=== PATIENT | male | born 1965 | race Caucasian/White ===

== ENCOUNTER → 2024-06-11 14:47 | Outpatient (REF) | payer OTHER, SELFPAY | LOC: RAD 14:47 | PROVIDERS: ATTENDING PHYSICIAN Internal Medicine | DX: R05.3 Chronic cough (principal) | CPT/HCPCS: 71046 ==

== ENCOUNTER → 2024-07-16 15:00 | Outpatient (REF) | payer OTHER, SELFPAY ==
[2024-07-16 16:22] LABS: % Basophils 0.5 % (0-2); % Eosinophils 2.5 % (0-6); % Immature Granulocytes 0.4 % (0-0.5); % Monocytes 7.2 % (1.7-9.3); % Neutrophils 67.4 % (42.2-75.2); Absolute Eosinophils 0.1 10^3/uL (0-0.7); Absolute Lymphocytes 1.2 10^3/uL (1.2-3.4); Absolute Monocytes 0.4 10^3/uL (0.1-0.6); Absolute Neutrophils 3.7 10^3/uL (1.4-6.5); Hematocrit 45.6 % (39.0-52.0); Hemoglobin 14.6 g/dL (13.0-18.0); Mean Corpuscular Volume 90.5 fL (80.0-94.0); Mean Platelet Volume 10.7 fL (7.4-10.4); Nucleated Red Blood Cells % 0 % (-); Platelet Count 141 10^3/uL (130-400); Red Blood Cell Count 5.04 10^6/uL (4.70-6.10); Red Cell Dist. Width 14.3 % (11.5-14.5); White Blood Cell Count 5.5 10^3/uL (4.8-10.8)
[2024-07-16 16:54] LABS: ALT (SGPT) 21 U/L (0-50); AST (SGOT) 29 U/L (17-59); Albumin 4.3 g/dl (3.5-5.0); Alkaline Phosphatase 96 U/L (38-126); Blood Urea Nitrogen 14 mg/dl (9-20); Calcium 9.3 mg/dl (8.4-10.2); Carbon Dioxide 34 mmol/L (22-30); Chloride 98 mmol/L (98-107); Glucose 82 mg/dl (70-99); HDL Cholesterol 51 mg/dl; LDL Cholesterol, Calculated 115 mg/dl; Potassium 4.9 mmol/L (3.5-5.1); Sodium 139 mmol/L (135-145); Total Bilirubin 0.4 mg/dl (0.2-1.3); Total Cholesterol 192 mg/dl (50-199); Total Protein 6.7 g/dl (6.3-8.2); Triglyceride 134 mg/dl (10-149); Very Low Density Lipoprotein 26 mg/dl (0-30); eGFR > 60.00
[2024-07-16 17:26] LABS: PSA, Total - Screen 0.13 ng/ml (0.0-4.0); TSH Reflex To Free T4 2.18 uIU/ml (0.47-4.68)
== END ==
LOC: REG 15:00
PROVIDERS: ATTENDING PHYSICIAN Student in an Organized Health Care Education/Training Program
DX: R06.02 Shortness of breath (principal); R00.2 Palpitations; F41.8 Other specified anxiety disorders; G47.33 Obstructive sleep apnea (adult) (pediatric); Z68.42 Body mass index [BMI] 45.0-49.9, adult; Z12.5 Encounter for screening for malignant neoplasm of prostate
CPT/HCPCS: 36415; 80053; 80061; 84443; 85025; G0103

== ENCOUNTER → 2024-08-10 12:23 | Outpatient (REF) | payer OTHER, SELFPAY | LOC: DHSLP 12:23 | PROVIDERS: ATTENDING PHYSICIAN Student in an Organized Health Care Education/Training Program | DX: G47.33 Obstructive sleep apnea (adult) (pediatric) (principal); R09.02 Hypoxemia | CPT/HCPCS: 95800 ==

== ENCOUNTER 2024-10-14 16:20 | Inpatient (IN) | payer OTHER, SELFPAY ==
[2024-10-14] VITALS (9 sets, daily range): BP systolic 102–159; BP diastolic 81–101; PULSE 2–80; BMI 50.8; BMI 50.0
[2024-10-14 12:45] LABS: % Basophils 0.5 % (0-2); % Eosinophils 1.5 % (0-6); % Immature Granulocytes 0.2 % (0-0.5); % Lymphocytes 13.5 % (20.5-51.1); % Monocytes 6.1 % (1.7-9.3); % Neutrophils 78.2 % (42.2-75.2); Absolute Basophils 0.1 10^3/uL (0-0.2); Absolute Eosinophils 0.1 10^3/uL (0-0.7); Absolute Lymphocytes 1.2 10^3/uL (1.2-3.4); Absolute Monocytes 0.6 10^3/uL (0.1-0.6); Absolute Neutrophils 7.2 10^3/uL (1.4-6.5); Hematocrit 45.8 % (39.0-52.0); Hemoglobin 15.2 g/dL (13.0-18.0); Mean Corp Hgb Conc. 33.2 g/dL (33.0-37.0); Mean Corpuscular Hgb 30.3 pg (27.0-31.0); Mean Corpuscular Volume 91.2 fL (80.0-94.0); Mean Platelet Volume 10.5 fL (7.4-10.4); Nucleated Red Blood Cells % 0 % (-); Platelet Count 141 10^3/uL (130-400); Red Blood Cell Count 5.02 10^6/uL (4.70-6.10); Red Cell Dist. Width 14.3 % (11.5-14.5); White Blood Cell Count 9.2 10^3/uL (4.8-10.8)
[2024-10-14 12:58] LABS: ALT (SGPT) 29 U/L (0-50); AST (SGOT) 33 U/L (17-59); Albumin 4.6 g/dl (3.5-5.0); Alkaline Phosphatase 97 U/L (38-126); Blood Urea Nitrogen 20 mg/dl (9-20); Calcium 8.9 mg/dl (8.4-10.2); Carbon Dioxide 28 mmol/L (22-30); Chloride 103 mmol/L (98-107); Glucose 120 mg/dl (70-99); Potassium 5.1 mmol/L (3.5-5.1); Sodium 139 mmol/L (135-145); Total Bilirubin 0.5 mg/dl (0.2-1.3); Total Protein 7.3 g/dl (6.3-8.2); eGFR > 60.00
[2024-10-14 13:12] LABS: Troponin I 0.083 ng/ml
--- NOTE | 2024-10-14 14:53 | ED.GENMED ---
History of Present Illness
<Jesús Reza PA-C - Last Filed: 10/14/24 15:35>
General
Chief Complaint: Generalized Pain
Source: patient
Time Seen by Provider: 10/14/24 14:31
History of Present Illness
History of Present Illness:
59-year-old male with past medical history of pulmonary embolism from unknown origin presents to the emergency department for evaluation after he was at home today doing some routine house chores when he developed pain that radiated from his
bilateral legs up through his abdomen and chest and into both arms accompanied with shortness of breath and feeling clammy lasting about 15 minutes and resolved after sitting down. Patient states that anytime he would go to get up to start
ambulating again the symptoms would recur. Patient notes that he is chest pain-free now but still will intermittently start to feel clammy with the symptoms resolving after a few minutes. He denies any history of similar. He does note that about
2 years ago he had a cardiac catheterization done as part of a pulmonary embolism workup and was told that this was unremarkable and has not seen cardiology since. Social history was noted for drinking about 8 ounces of vodka daily. He reports his
grandfather had a cardiac history but is unsure if he had any cardiac stents. Patient does not take any anticoagulant or antiplatelet medication presently. He is currently denying any fevers or recent illnesses, cough, hemoptysis, lower extremity
edema.
Past History
<Jesús Reza PA-C - Last Filed: 10/14/24 15:35>
Past History
ED Past Medical History: Other (Pulmonary embolism)
ED Past Surgical History: Orthopedic
Social History
Tobacco: Non-smoker
Alcohol: Daily
Drug: None
Personal:
Living: with family
Review of Systems
<Jesús Reza PA-C - Last Filed: 10/14/24 15:35>
Review of Systems
All Other Systems: ROS reviewed and negative except as documented in HPI and ROS
Phy Exam
<Jesús Reza PA-C - Last Filed: 10/14/24 15:35>
Physical Exam
Physical Exam:
GENERAL: Alert , in no apparent distress, overweight, appears older than stated age
EYE: clear conjunctiva b/l
HEAD: NCAT
ENT: o/p clr, mmm.
CARDIAC: Regular rate and rhythm .
LUNGS: Clear breath sounds bilaterally, no acute respiratory distress, no wheezes/rales/rhonchi
ABDOMEN: Soft, without focal tenderness, no r/g, no cvat
NEUROLOGICAL: Alert and oriented
SKIN: Warm and dry, skin intact.
MUSCULOSKELETAL: No edema, well perfused. Easily palpable pulses to bilateral lower extremities
PSYCH: Normal and appropriate interaction.
Scores
<Jesús Reza PA-C - Last Filed: 10/14/24 15:35>
Heart Failure Risk
Heart Failure Risk Score: Not Applicable
Heart Score for Chest Pain Patients
STEMI patient?: Not applicable
Withdrawal Assessment of Alcohol
Withdrawal Assessment Completed?: Not applicable
Course
<Jesús Reza PA-C - Last Filed: 10/14/24 15:35>
Orders/Labs/Results
Orders:
Orders
10/14/24 Breakfast
Regular
At Your Request: Full Participation
10/14/24 12:13
EKG [Electrocardiogram (*1)] Urgent
Reason for Study: Chest Pain
EKG- Treatment ONCE
10/14/24 12:37
Complete Blood Count/With Diff Urgent
10/14/24 12:38
Comprehensive Metabolic Panel Urgent
Troponin I Urgent
10/14/24 14:41
Electrocardiogram (*1) Urgent
Reason for Study: Chest Pain
EKG- Treatment ONCE
10/14/24 14:43
NT-proBNP Urgent
Comment: 'ADD ON
Troponin I Urgent
10/14/24 14:48
CT Chest/abd/pelvis Angio W/wo Urgent
Comment:
Reason For Exam: elevated trop, chest pain, numbness to extremity
10/14/24 15:19
Add On- LAB Urgent
Tests Added?: bnp
10/14/24 15:20
Heparin 10,000 units IV NOW STA
Nursing to Place Non Medication Order As Directed
Physician Order: PTT 6 hours after initial start of Heparin infusion
Above order entered?: Yes
10/14/24 15:28
Heparin 10,000 units IV PRN PRN
10/14/24 15:29
Heparin 5,000 units IV PRN PRN
10/14/24 15:30
Heparin 10726 Units/250 ml 25,000 units in 250 ml IV PER PROTOCOL
Weight to be used for heparin protocol in kilograms (kg):: 165.1
Protocol:: DVT/PE
PTT Goal Range to be used:: PTT 73 to 111 seconds
Order type:: Initial
INITIAL Infusion Dose (UNITS/KG/hr) & then follow protocol:: 18 units/kg/hr
Infusion Dose in UNITS/hr & then follow protocol (UNITS/hr):: 2,000
INFUSION RATE in mL/hr & then follow protocol (mL/hr):: 20
For DVT/PE algorithm, re-bolus for low PTT?: Yes
PTT less than or equal to 64 seconds:: Re-bolus 80 units/kg (max 10,000units). Increase by 500 units/hr
(+ 5mL/hr)
PTT 64.1 to 72.9 seconds:: Re-bolus 40 units/kg (max 5,000 units). Increase by 300 units/hr
(+ 3mL/hr)
PTT 73 to 111 seconds:: Target Range. No change in rate.
PTT 111.1 to 130.9 seconds:: Decrease rate by 300 units/hr (- 3 mL/hr)
PTT 131 to 199.9 seconds:: HOLD for 1 hr. Then decrease by 400 units/hr (- 4mL/hr)
PTT greater than or equal to 200 seconds:: HOLD for 2 hrs & Notify Provider. Then decrease by 500 units/hr
(- 5mL/hr)
Lab follow-up:: Each change, PTT q6h until 2 consecutive are therapeutic. Then
PTT daily.
10/14/24 15:33
Echo 2D MMode Color/Doppler Urgent
Reason for Study: pe
10/14/24 15:34
Consult Pulmonary [PULMONARY CONSULT] Urgent
Consulting Provider: Thad Norris
Was physician already notified: Yes
10/14/24 15:35
D-Dimer Urgent
Comment: ADD ON
PTT Urgent
Comment: Obtain baseline before beginning heparin infusion if not already collected
10/14/24 16:03
Admit/Transfer Patient As Directed
Co-Sign Provider:
Level of Care: Inpatient admission
Assign to:: Telemetry
Physician / Group: xena
Diagnosis: PE
Reason for Telemetry: Other
Other Reason for Telemetry: PE
Date to Stop Telemetry: 10/16/24
Time to Stop Telemetry: 11:00
Reason for Hospitalization: PE
Expected length of stay greater than two midnights?: Yes
ELOS- Estimated Length of Stay in days: 3
I certify the patient meets the requirements for IP care: Yes
PRN Pain Medication Management As Directed
May give lesser potent ordered pain med per pt: Yes
preference::
Protocol:: Medication orders for pain may be administered in a
manner that supports deferring to patient preference
when the pt is:
- Requesting an ordered lesser potent pain medication.
Least to most potent pain medications are defined
as: acetaminophen < NSAID < tramadol < opioids
(morphine, oxycodone, hydromorphone).
- Requesting a lesser dose of the same medication IF
ORDERED.
- Requesting a less intrusive route of administration
if both routes are prescribed by the provider (PO <
IV).
10/14/24 16:04
Code Status As Directed
Resuscitation Status: Full Code
10/14/24 17:57
Acetaminophen [Tylenol] 650 mg PO Q4HPRN PRN
10/14/24 17:57
Heparin Protocol- PTT Orders As Directed
PTT per Heparin protocol: -Obtain CBC and baseline PTT - if not already collected.
-Obtain PTT 6 hours from start of infusion. Then, every 6 hours until 2 consecutive
PTT's are therapeutic. Then, PTT Daily.
-With each rate change, obtain PTT every 6 hours until 2 consecutive PTT's are
therapeutic. Then, PTT Daily.
Activity As Directed
Activity Level: As Tolerated
Bladder Scan As Directed
Follow Bladder Retention/Intermittent Cath Algorithm?: Yes
Frequency: Per Retention Algorithm
Comment: as per intermittent urinary catheter algorithm
Bladder Scan As Directed
Follow Bladder Retention/Intermittent Cath Algorithm?: Yes
PRN if no void in __ hours: 6
Frequency: Per Retention Algorithm
If Bladder Scan Result >: 400
then:: Straight cath
Intake/ Output As Directed
Frequency: Per unit guidelines
Notify MD As Directed
Notify physician if: PTT is greater than or equal to 200.
Straight Cath As Directed
Frequency: Per Retention Algorithm
Additional Instructions: as per intermittent urinary catheter algorithm
Straight Cath As Directed
Frequency: Per Retention Algorithm
Additional Instructions: straight cath as needed per acute urinary retention algorithm for 24 hrs
Additional Instructions: for bladder scan greater than 400 mL
Vital Signs As Directed
Frequency: Per unit guidelines
Cpap [RESP] Routine
Patient to use own unit?: No
Set Pressure (cm H2O): 10
10/14/24 18:03
Oxycodone [Roxicodone] 30 mg PO Q3HPRN PRN
10/14/24 20:00
Gabapentin [Neurontin] 300 mg PO BID
10/14/24 21:39
PTT Urgent
10/14/24 22:00
Diphenhydramine [Benadryl] 50 mg PO HS
Duloxetine Delayed Release [Cymbalta Delayed Release] 30 mg PO HS
10/16/24 06:00
Complete Blood Count/No Diff Q2D
Comment: notify provider: Platelet count < 130,000 or decrease by 50% from baseline
10/16/24 11:00
DC Protocol for Telemetry ONCE
10/18/24 06:00
Complete Blood Count/No Diff Q2D
Comment: notify provider: Platelet count < 130,000 or decrease by 50% from baseline
10/20/24 06:00
Complete Blood Count/No Diff Q2D
Comment: notify provider: Platelet count < 130,000 or decrease by 50% from baseline
10/22/24 06:00
Complete Blood Count/No Diff Q2D
Comment: notify provider: Platelet count < 130,000 or decrease by 50% from baseline
10/24/24 06:00
Complete Blood Count/No Diff Q2D
Comment: notify provider: Platelet count < 130,000 or decrease by 50% from baseline
10/26/24 06:00
Complete Blood Count/No Diff Q2D
Comment: notify provider: Platelet count < 130,000 or decrease by 50% from baseline
10/28/24 06:00
Complete Blood Count/No Diff Q2D
Comment: notify provider: Platelet count < 130,000 or decrease by 50% from baseline
10/30/24 06:00
Complete Blood Count/No Diff Q2D
Comment: notify provider: Platelet count < 130,000 or decrease by 50% from baseline
Abnormal Lab Results
10/14/24 10/14/24 10/14/24
12:37 12:38 14:43
MPV 10.5 H fL
(7.4-10.4)
Absolute Neuts (auto) 7.2 H 10^3/uL
(1.4-6.5)
Neutrophils % 78.2 H %
(42.2-75.2)
Lymphocytes % 13.5 L %
(20.5-51.1)
D-Dimer
Glucose 120 H mg/dl
(70-99)
Troponin I 0.083 H* ng/ml 0.122 H* D ng/ml
10/14/24
15:35
MPV
Absolute Neuts (auto)
Neutrophils %
Lymphocytes %
D-Dimer 4.05 H ug/mlFEU
(0.00-0.50)
Glucose
Troponin I
10/14/24 12:37
10/14/24 12:38
Vital Signs
Initial and Last Documented VS:
Initial Vital Signs
Temp Pulse Resp BP Pulse Ox
98 F 111 16 139/101 95
10/14/24 12:25 10/14/24 12:25 10/14/24 12:25 10/14/24 12:25 10/14/24 12:25
Last Documented Vital Signs
Temp Pulse Resp BP Pulse Ox
97.8 F 95 18 159/98 96
10/14/24 19:19 10/14/24 19:19 10/14/24 19:19 10/14/24 19:19 10/14/24 19:19
<Bull Steen, DO - Last Filed: 10/14/24 20:02>
Orders/Labs/Results
Orders:
Orders
10/14/24 Breakfast
Regular
At Your Request: Full Participation
10/14/24 12:13
EKG [Electrocardiogram (*1)] Urgent
Reason for Study: Chest Pain
EKG- Treatment ONCE
10/14/24 12:37
Complete Blood Count/With Diff Urgent
10/14/24 12:38
Comprehensive Metabolic Panel Urgent
Troponin I Urgent
10/14/24 14:41
Electrocardiogram (*1) Urgent
Reason for Study: Chest Pain
EKG- Treatment ONCE
10/14/24 14:43
NT-proBNP Urgent
Comment: 'ADD ON
Troponin I Urgent
10/14/24 14:48
CT Chest/abd/pelvis Angio W/wo Urgent
Comment:
Reason For Exam: elevated trop, chest pain, numbness to extremity
10/14/24 15:19
Add On- LAB Urgent
Tests Added?: bnp
10/14/24 15:20
Heparin 10,000 units IV NOW STA
Nursing to Place Non Medication Order As Directed
Physician Order: PTT 6 hours after initial start of Heparin infusion
Above order entered?: Yes
10/14/24 15:28
Heparin 10,000 units IV PRN PRN
10/14/24 15:29
Heparin 5,000 units IV PRN PRN
10/14/24 15:30
Heparin 12881 Units/250 ml 25,000 units in 250 ml IV PER PROTOCOL
Weight to be used for heparin protocol in kilograms (kg):: 165.1
Protocol:: DVT/PE
PTT Goal Range to be used:: PTT 73 to 111 seconds
Order type:: Initial
INITIAL Infusion Dose (UNITS/KG/hr) & then follow protocol:: 18 units/kg/hr
Infusion Dose in UNITS/hr & then follow protocol (UNITS/hr):: 2,000
INFUSION RATE in mL/hr & then follow protocol (mL/hr):: 20
For DVT/PE algorithm, re-bolus for low PTT?: Yes
PTT less than or equal to 64 seconds:: Re-bolus 80 units/kg (max 10,000units). Increase by 500 units/hr
(+ 5mL/hr)
PTT 64.1 to 72.9 seconds:: Re-bolus 40 units/kg (max 5,000 units). Increase by 300 units/hr
(+ 3mL/hr)
PTT 73 to 111 seconds:: Target Range. No change in rate.
PTT 111.1 to 130.9 seconds:: Decrease rate by 300 units/hr (- 3 mL/hr)
PTT 131 to 199.9 seconds:: HOLD for 1 hr. Then decrease by 400 units/hr (- 4mL/hr)
PTT greater than or equal to 200 seconds:: HOLD for 2 hrs & Notify Provider. Then decrease by 500 units/hr
(- 5mL/hr)
Lab follow-up:: Each change, PTT q6h until 2 consecutive are therapeutic. Then
PTT daily.
10/14/24 15:33
Echo 2D MMode Color/Doppler Urgent
Reason for Study: pe
10/14/24 15:34
Consult Pulmonary [PULMONARY CONSULT] Urgent
Consulting Provider: Thad Norris
Was physician already notified: Yes
10/14/24 15:35
D-Dimer Urgent
Comment: ADD ON
PTT Urgent
Comment: Obtain baseline before beginning heparin infusion if not already collected
10/14/24 16:03
Admit/Transfer Patient As Directed
Co-Sign Provider:
Level of Care: Inpatient admission
Assign to:: Telemetry
Physician / Group: xena
Diagnosis: PE
Reason for Telemetry: Other
Other Reason for Telemetry: PE
Date to Stop Telemetry: 10/16/24
Time to Stop Telemetry: 11:00
Reason for Hospitalization: PE
Expected length of stay greater than two midnights?: Yes
ELOS- Estimated Length of Stay in days: 3
I certify the patient meets the requirements for IP care: Yes
PRN Pain Medication Management As Directed
May give lesser potent ordered pain med per pt: Yes
preference::
Protocol:: Medication orders for pain may be administered in a
manner that supports deferring to patient preference
when the pt is:
- Requesting an ordered lesser potent pain medication.
Least to most potent pain medications are defined
as: acetaminophen < NSAID < tramadol < opioids
(morphine, oxycodone, hydromorphone).
- Requesting a lesser dose of the same medication IF
ORDERED.
- Requesting a less intrusive route of administration
if both routes are prescribed by the provider (PO <
IV).
10/14/24 16:04
Code Status As Directed
Resuscitation Status: Full Code
10/14/24 17:57
Acetaminophen [Tylenol] 650 mg PO Q4HPRN PRN
10/14/24 17:57
Heparin Protocol- PTT Orders As Directed
PTT per Heparin protocol: -Obtain CBC and baseline PTT - if not already collected.
-Obtain PTT 6 hours from start of infusion. Then, every 6 hours until 2 consecutive
PTT's are therapeutic. Then, PTT Daily.
-With each rate change, obtain PTT every 6 hours until 2 consecutive PTT's are
therapeutic. Then, PTT Daily.
Activity As Directed
Activity Level: As Tolerated
Bladder Scan As Directed
Follow Bladder Retention/Intermittent Cath Algorithm?: Yes
Frequency: Per Retention Algorithm
Comment: as per intermittent urinary catheter algorithm
Bladder Scan As Directed
Follow Bladder Retention/Intermittent Cath Algorithm?: Yes
PRN if no void in __ hours: 6
Frequency: Per Retention Algorithm
If Bladder Scan Result >: 400
then:: Straight cath
Intake/ Output As Directed
Frequency: Per unit guidelines
Notify MD As Directed
Notify physician if: PTT is greater than or equal to 200.
Straight Cath As Directed
Frequency: Per Retention Algorithm
Additional Instructions: as per intermittent urinary catheter algorithm
Straight Cath As Directed
Frequency: Per Retention Algorithm
Additional Instructions: straight cath as needed per acute urinary retention algorithm for 24 hrs
Additional Instructions: for bladder scan greater than 400 mL
Vital Signs As Directed
Frequency: Per unit guidelines
Cpap [RESP] Routine
Patient to use own unit?: No
Set Pressure (cm H2O): 10
10/14/24 18:03
Oxycodone [Roxicodone] 30 mg PO Q3HPRN PRN
10/14/24 20:00
Gabapentin [Neurontin] 300 mg PO BID
10/14/24 21:39
PTT Urgent
10/14/24 22:00
Diphenhydramine [Benadryl] 50 mg PO HS
Duloxetine Delayed Release [Cymbalta Delayed Release] 30 mg PO HS
10/16/24 06:00
Complete Blood Count/No Diff Q2D
Comment: notify provider: Platelet count < 130,000 or decrease by 50% from baseline
10/16/24 11:00
DC Protocol for Telemetry ONCE
10/18/24 06:00
Complete Blood Count/No Diff Q2D
Comment: notify provider: Platelet count < 130,000 or decrease by 50% from baseline
10/20/24 06:00
Complete Blood Count/No Diff Q2D
Comment: notify provider: Platelet count < 130,000 or decrease by 50% from baseline
10/22/24 06:00
Complete Blood Count/No Diff Q2D
Comment: notify provider: Platelet count < 130,000 or decrease by 50% from baseline
10/24/24 06:00
Complete Blood Count/No Diff Q2D
Comment: notify provider: Platelet count < 130,000 or decrease by 50% from baseline
10/26/24 06:00
Complete Blood Count/No Diff Q2D
Comment: notify provider: Platelet count < 130,000 or decrease by 50% from baseline
10/28/24 06:00
Complete Blood Count/No Diff Q2D
Comment: notify provider: Platelet count < 130,000 or decrease by 50% from baseline
10/30/24 06:00
Complete Blood Count/No Diff Q2D
Comment: notify provider: Platelet count < 130,000 or decrease by 50% from baseline
Abnormal Lab Results
10/14/24 10/14/24 10/14/24
12:37 12:38 14:43
MPV 10.5 H fL
(7.4-10.4)
Absolute Neuts (auto) 7.2 H 10^3/uL
(1.4-6.5)
Neutrophils % 78.2 H %
(42.2-75.2)
Lymphocytes % 13.5 L %
(20.5-51.1)
D-Dimer
Glucose 120 H mg/dl
(70-99)
Troponin I 0.083 H* ng/ml 0.122 H* D ng/ml
10/14/24
15:35
MPV
Absolute Neuts (auto)
Neutrophils %
Lymphocytes %
D-Dimer 4.05 H ug/mlFEU
(0.00-0.50)
Glucose
Troponin I
10/14/24 12:37
10/14/24 12:38
Vital Signs
Initial and Last Documented VS:
Initial Vital Signs
Temp Pulse Resp BP Pulse Ox
98 F 111 16 139/101 95
10/14/24 12:25 10/14/24 12:25 10/14/24 12:25 10/14/24 12:25 10/14/24 12:25
Last Documented Vital Signs
Temp Pulse Resp BP Pulse Ox
97.8 F 95 18 159/98 96
10/14/24 19:19 10/14/24 19:19 10/14/24 19:19 10/14/24 19:19 10/14/24 19:19
<Jesús Reza PA-C - Last Filed: 10/14/24 15:35>
MDM/Problems Addressed
Differential Diagnosis Includes:
Angina, dissection, pulmonary embolism, muscular etiology
MDM/Problems Addressed:
59-year-old male presenting to the emergency department for evaluation after developing chest pain, abdominal pain bilateral upper and lower extremity pain that lasted about 15 minutes with exertion and accompanied with clamminess and shortness of
breath. Presently asymptomatic but while in the waiting room was reportedly diaphoretic. Labs were initiated on arrival and patient did have a slightly elevated troponin at 0.083. Will send patient for a stat dissection study given the pain into
the extremities. P troponin the EKG done which does show some T wave inversion in the anterior leads but is unchanged from initial EKG upon arrival. Anticipate admission. Holding aspirin until CTA completed to ensure no dissection prior to giving
medication. Will discuss with on-call cardiology for consultation.
<Jesús Reza PA-C - Last Filed: 10/14/24 15:35>
*Pulse Oximetry
Patient hypoxic: no
*EKG
Interpreted by ED Provider?: Yes
Heart Rate: 117
Rate: tachycardiac
Rhythm: sinus
[place]: normal axis
Ischemia: T-wave inversion (anterior leads)
*Work Car Operator Interpretation
Rate: normal
Rhythm: sinus
*Critical Care Note
Total Time (30-74mins, 75-104mins- exclusive of procedures): 35
comment:
Critical care statement: A total of 35 minutes of critical care time was provided for this patient. This includes management of unstable vital signs, evaluation of the patient at bedside, reviewing the patient's pertinent medical records, discussion
with consultants, review of old EKGs and review of pertinent medical records. This time with separate from time utilized to perform the aforementioned documented procedures
Data Reviewed
Review of Other/Old Records Reveals: Records and Testing
<Bull Steen DO - Last Filed: 10/14/24 20:02>
*Radiology
Radiology exam reviewed: radiology read reviewed
<Jesús Reza PA-C - Last Filed: 10/14/24 15:35>
Patient Management
Discussion with other providers: Hospitalist, System Integration Engineer and Radiologist
Escalation/DeEscalation of care consider admission/obs:
3:20 PM -received notification from radiology that patient has bilateral pulmonary embolism going into the left main pulmonary artery with mild right heart strain. PERT alert called. Heparin ordered
3:28 PM -pulmonary reviewed patient's CTA and feels patient is stable for heparin only at this time and does not require thrombolysis. Would like to obtain echocardiogram today and will come to the ER to see the patient. Hospitalist team was
notified and accepts for continued evaluation and treatment
ED Attending Note
<Jesús Reza PA-C - Last Filed: 10/14/24 15:35>
-
Portions of this chart may have been created with voice recognition software.� Occasional wrong word or��sound alike� substitutions may have occurred due to the inherent limitations of voice recognition software.
<Bull Steen DO - Last Filed: 10/14/24 20:02>
ED Attending Note
Patient seen and examined by attending physician: Yes
ED Attending Note:
Seen with PA examined briefly agree with assessment and plan plan of care from pulmonary reviewed, does not appear to be a lytic candidate at this time, will get an echo he is on unfractionated heparin is oxygenating okay
Discharge Plan
Departure
Patient Disposition: Admit
Date of Disposition: 10/14/24
Time of Disposition: 15:27
Presentation/result/management discussed w/ accepting MD/DO: Hospitalist
Discharge Problem:
Pulmonary embolism
Interventions
Interventions:
*Risk Screen - Suicide Last Done: 10/14/24 12:32
*General Assessment Last Done: 10/14/24 15:16
*Neglect/Abuse Screening Last Done: 10/14/24 12:32
ED- Fall Risk Assessment Last Done: 10/14/24 17:42
*ED COVID-19 Vaccine History Last Done: 10/14/24 15:16
*Nursing Disposition Last Done: 10/14/24 17:42
Discharge Date and Time
Discharge Date/Time: 10/14/24 17:42
[2024-10-14 15:16] LABS: Troponin I 0.122 ng/ml
[2024-10-14] MEDS: HEPARIN 10000 UNITS IV (15:35)
[2024-10-14] MEDS: HEPARIN 25000 UNITS/250 ML IV (15:39)
--- NOTE | 2024-10-14 15:49 | HPS.HSE ---
Family Physician
-
Family Physician: Sugey Stoddard MD
Chief Complaint
-
Short of
History of Present Illness
59-year-old male with past medical history of pulmonary embolism from unknown origin, was on Xarelto for 6 months, presents to the emergency department for evaluation after he was at home today doing some routine house chores when he developed pain
that radiated from his bilateral legs up through his abdomen and chest and into both arms accompanied with shortness of breath and feeling clammy lasting about 15 minutes and resolved after sitting down. Patient states that anytime he would go to
get up to start ambulating again the symptoms would recur. Patient denied any headache, dizzy, syncope. Patient denied any fever, chills, runny nose, congestion, cough. Patient denied abdominal pain, nausea, vomiting, diarrhea. Patient denied
dysuria hematuria patient denies any. Recent travel.
CT with PE. Patient is initiated on heparin drip. Admitting for further management
Medical History
Past Medical History
Past Medical History: Reports Other
Additional Past Medical History:
Pulmonary embolism
Pneumonia
DVT
Meniscal deterioration
Sleep apnea
Past Surgical History: Reports Other
Additional Past Surgical History:
Knee surgery
Dental implants
Social History
Tobacco: Non-smoker
Alcohol: Daily (6 to 8 ounce vodka)
Drug: Other (Occasional POTS)
Personal:
Living: With Family
Family History
Family History: Not pertinent
Allergies / Home Medications
Allergies reflects when Allergies were last updated in [facility].
Home Medications with original date entered in [facility]
Allergy/Medication List:
Allergies
Allergy/AdvReac Type Severity Reaction Status Date / Time
No Known Allergies Allergy Verified 12/14/21 10:11
Home Medications
Monolaurin 1,200 mg PO BID 11/30/21
lysine 1,000 mg tablet 1,000 mg PO BID 11/30/21
oxycodone 30 mg tablet 30 mg PO Q3HPRN PRN severe pain 11/30/21
celecoxib 200 mg capsule (Celebrex) 200 mg PO BID 10/14/24
diphenhydramine HCl 50 mg capsule 50 mg PO HS 10/14/24
duloxetine 30 mg capsule,delayed release 30 mg PO HS 10/14/24
gabapentin 300 mg capsule 300 mg PO BID 10/14/24
loperamide 2 mg tablet 2 mg PO DAILYPRN PRN dirrahea 10/14/24
magnesium oxide 500 mg PO DAILY 10/14/24
tirzepatide (weight loss) 5 mg/0.5 mL subcutaneous solution (Zepbound) 5 mg SC FR 10/14/24
Review of Systems
-
Constitutional: Reports No Symptoms
EENT: Reports No Symptoms
Respiratory: Reports Trouble Breathing
Cardiac: Reports Chest Pain
Abdomen/GI: Reports No Symptoms
: Reports No Symptoms
Musculoskeletal: Reports No Symptoms
Skin: Reports No Symptoms
Neurological: Reports No Symptoms
Endocrine: Reports No Symptoms
Hematologic/Lymphatic: Reports No Symptoms
Psych: Reports No Symptoms
Physical Exam
Vital Signs
Vital Signs
Temp Pulse Resp BP Pulse Ox
98 F 99 17 145/92 96
10/14/24 12:25 10/14/24 15:45 10/14/24 15:45 10/14/24 15:12 10/14/24 15:45
Physical Exam
General: Well Developed, Well Nourished and No Apparent Distress
HEENT: NormoCephalic, Moist mucous membranes and Atraumatic
Respiratory: Clear
Cardiac: S1/S2 and Regular Rhythm; No Murmur or Rub
GI: Soft, Non Tender, Non Distended and Normal Bowel Sounds; No Organomegaly
Rectal: Deferred by Provider
Musculoskeletal: No Clubbing, No Cyanosis and No Edema
Skin: No Rash
Neuro: AO x 3 and Nonfocal/grossly intact
Psych: Calm
Laboratory Results
-
10/14/24 12:37
10/14/24 12:38
Laboratory Results
Total Bilirubin 0.5 mg/dl (0.2-1.3) 10/14/24 12:38
AST 33 U/L (17-59) 10/14/24 12:38
ALT 29 U/L (0-50) 10/14/24 12:38
Alkaline Phosphatase 97 U/L (38-126) 10/14/24 12:38
Troponin I 0.122 ng/ml H* D 10/14/24 14:43
Data Reviewed
-
CT Scan: Report Reviewed by me
Lab Data: Labs Reviewed by me
Impression/Plan
-
# Bilateral PE un provoked
-IV heparin continue
-Pulmonology consult
-Echo
-CTA with impression of Negative for aortic dissection.
2. Bilateral pulmonary emboli as described. There is embolus at the bifurcation of left main pulmonary artery with extension into segmental branches as above. There is embolus at the bifurcation of right middle and lower lobar pulmonary arteries
with extension into segmental branches as above. Larger burden of thrombus on the left. There is right ventricle enlargement with some flattening of the intraventricular septum suggesting probable associated component of right heart
strain.Hepatomegaly and hepatic fatty infiltration.
# Troponin elevation likely demand ischemia
-Continue to trend Trope
-EKG with normal sinus rhythm
# Chronic pain
- gabapentin, Oxy continued
-hold Celebrex on heparin drip
# Obstructive sleep apnea
-CPAP continued
-Benadryl for sleep
# Anxiety
-Duloxetine
# CODE STATUS
-Full code
--- NOTE | 2024-10-14 15:57 | CON.INTV ---
Consultation
Consultation Request
Date/Time Consultation Requested: 10/14
Date/Time Consultation Performed: 10/14
Reason for Consultation: PERT alert, acute PE
Medical History
-
History of Present Illness:
History obtained from the patient, hospital records, at bedside and reviewing outpatient records. Patient is a 59-year-old male with history of lower extremity DVT August 2021, obstructive sleep apnea on BiPAP who has lost 45 pounds
intentionally with Zepbound over the last 6 mo, now presents with acute onset of shortness of breath, presyncopal symptoms. He was feeding his chickens and while bending over, felt short of breath. While walking from the house to the coop he fell
forward breath which is about 50 feet which is unusual for him. With rest of the symptoms resolved. With simple activities at home he would feel similar shortness of breath. Prior to this he was in his usual state of health. For this reason he
brought himself into [facility] where upon arrival, afebrile, pulse 111, breathing at 16, blood pressure 139/101, 95% on room air. Patient had CT chest which confirmed PE. Final report pending. Heparin therapy started. PERT alert called
at 3:22 PM. Images reviewed immediately by myself and patient evaluated in the ED. We are asked to help from pulmonary/critical care standpoint
Of note, at rest patient has no symptoms. He denies any recent falls or trauma, denies any recent travel. States he has not had any issues prior to today
.
PMH: History of DVT/PE August 2021. Patient states he only had a clot in his legs at that time, was on anticoagulation for 3 months. Cannot recall seeing hematology. History of pneumonia, chronic knee arthritis, rhinitis, chronic back pain,
sleep apnea on BiPAP therapy
Past Medical History
Past Medical History: None (See above)
Past Surgical History: None ( see above)
Social History
Tobacco: Non-smoker
Alcohol: Daily (4-5 vodka/orange juice. According to , lots of orange juice, minimal vodka)
Drug: None
Personal:
Living: With Family
Family History
Family History: Other (1 brother healthy. No children. Father from lung cancer. Mother from breast cancer)
Allergies / Home Medications
Allergies
Allergy/AdvReac Type Severity Reaction Status Date / Time
No Known Allergies Allergy Verified 12/14/21 10:11
Home Medications
�Medication �Instructions �Recorded �Confirmed �Last Taken �Type
Monolaurin 1,200 mg PO BID 11/30/21 10/14/24 10/14/24 History
lysine 1,000 mg tablet 1,000 mg PO BID 11/30/21 10/14/24 10/14/24 History
oxycodone 30 mg tablet 30 mg PO Q3HPRN PRN severe pain 11/30/21 10/14/24 10/14/24 History
60 mg
celecoxib 200 mg capsule (Celebrex) 200 mg PO BID 10/14/24 10/14/24 10/14/24 History
diphenhydramine HCl 50 mg capsule 50 mg PO HS 10/14/24 10/14/24 10/13/24 History
duloxetine 30 mg capsule,delayed 30 mg PO HS 10/14/24 10/14/24 10/13/24 History
release
gabapentin 300 mg capsule 300 mg PO BID 10/14/24 10/14/24 10/14/24 History
loperamide 2 mg tablet 2 mg PO DAILYPRN PRN dirrahea 10/14/24 10/14/24 10/13/24 History
magnesium oxide 500 mg PO DAILY 10/14/24 10/14/24 10/13/24 History
tirzepatide (weight loss) 5 mg/0.5 5 mg SC FR 10/14/24 10/14/24 10/08/24 History
mL subcutaneous solution (Zepbound)
Review of Systems
-
All other systems: Negative unless noted
Vitals / Labs / Diagnostic Testing
Vital Signs
Temp Pulse Resp BP Pulse Ox
98 F 99 17 145/92 96
10/14/24 12:25 10/14/24 15:45 10/14/24 15:45 10/14/24 15:12 10/14/24 15:45
Lab Data
10/14/24 12:37
10/14/24 12:38
Diagnostic Testing:
Physical Exam
-
HEENT: Normocephalic, Anicteric and Other (Large neck)
Cardiovascular: S1/S2, Regular Rhythm, Murmur (n), Rub (n), Peripheral Edema (tr) and Calf Tenderness (n)
Respiratory: Wheeze (n), Rales (n), Rhonchi (n), Non-Labored Respirations and Other (Decreased at base)
GI: Soft, Non Distended (Morbidly obese) and Non Tender
Neurology: Awake, Alert and No Motor Deficits
Skin: Good Color and Other (No skin rash, no clubbing)
General: Comfortable (Conversant, no use of accessory muscles)
Assessment
-
59-year-old male with history of DVT/PE August 2021 treated in at [facility] with 3 months of anticoagulation, sleep apnea on BiPAP therapy, presents with acute onset shortness of breath and presyncopal symptoms. Patient found to be
tachycardic, abnormal EKG. CT chest confirmed bilateral PE, left greater than right. We are asked to help from critical care standpoint
Acute bilateral PE
Minimal RV strain per report
Elevated troponin
Sinus tachycardia
Mild presyncopal symptoms
Hepatomegaly
Daily alcohol use
Conditions present prior to admission
History of PE/DVT August 2021
Completed 3 months of anticoagulation
Hypertension
Obstructive sleep apnea on BiPAP
Compliant with BiPAP
Most recent HST AHI 105, desaturation peter 63%, July 2024
Total AHI 33, REM AHI 115, desaturation peter 78%, failed CPAP, February 2021
Chronic bilateral arthritis
History of rhinitis, sinus infections
50 pound weight loss intentional
On Zepbound therapy
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
Plan/recommendations
At this time, patient appears to be comfortable without symptoms
Primarily exertional symptoms which started today around 11:30 in the morning
History of bilateral DVT and PE August 2021 noted, cause unknown
Mildly elevated troponin, abnormal EKG with sinus tachycardia, P pulmonale
CT chest reviewed. There is bilateral PE. Some clot on the right side appears to be eccentric per my review. Of note study was not a dedicated CT PE protocol, but instead CT angiogram to rule out aortic dissection. No evidence of dissection.
PESI score 89, class III (up to 7.1% 30-day mortality)
Discussed at length with patient and pathophysiology of thromboembolic disease
Discussed risks of thrombolytic therapy
Moving forward
Empiric anticoagulation for now with heparin
Reviewed films with interventional radiology. Left pulmonary artery clot may be amenable to CDT/thrombectomy, however most clot is peripheral in nature
Given lack of hypoxia, lack of hemodynamic instability, will hold off on thrombolytic therapy
Continue with empiric heparin therapy
Check D-dimer
Would obtain echocardiogram
Gentle IV fluids
Given second thromboembolic event, may benefit from hematology evaluation as outpatient
Patient has not had colonoscopy
Recommend age-appropriate cancer screening
Patient did not bring his BiPAP
Will set up BiPAP with 20/16 during hospital stay
Reviewed with ED staff, patient, at bedside
Reviewed with interventional radiology
Complex decision making process
Will follow
[2024-10-14 16:11] LABS: APTT 29.5 Sec (23.4-35.0)
[2024-10-14 16:12] LABS: NT-proBNP 254 pg/ml
--- NOTE | 2024-10-14 16:37 | W.PN.UPDATE ---
Update Note
Progress Note Update
This is an addendum to the H&P written by Gianna Sousa on 10/14/2024. Patient seen and examined independently with NUCLEAR WASTE PROCESS OPERATOR.
59-year-old male past medical history of unprovoked DVT/PE pulmonary embolism 3 years ago in 2020, chronic arthritis/back/leg pain, obstructive sleep apnea on BiPAP at night, hypertension, obesity on Zepbound, presenting with acute onset of
shortness of breath, presyncope, chest pain/back pain.
CT PE showed bilateral PE and PERT alert was called.
Troponin elevated at 0.083 increased to 0.122. EKG showed normal sinus rhythm, T wave inversions. Trend troponins. Echocardiogram pending. Heparin drip started. Thrombolysis was considered however patient is hemodynamically stable and
pulmonology recommended against it. Check venous ultrasound. Hold ibuprofen.
Patient bala possibly need lifelong anticoagulation given second unprovoked PE. Will benefit from outpatient hematology evaluation for prothrombotic workup.
--- NOTE | 2024-10-14 16:56 | CARDSERVLU ---
Echocardiogram with [facility] completed after protocol screening completed. Allergies verified.
Patent IV site: _RAC____
IV site flushed with 0.9% NaCl pre and post administration.
Diluted bolus method utilized to enhance visualization of ventricular calabrese.
Total volume given: __5__ mL
Patient tolerated all procedures well without complications.
[2024-10-14 17:25] LABS: D-Dimer 4.05 ug/mlFEU (0.00-0.50)
--- NOTE | 2024-10-14 19:23 | PTCARENOTE ---
Pt admitted to rm [id number] from ED. Pulled over to bed from stretcher d/t bedrest order. Heparin gtt infusing via LAC at 20ml/hr as ordered, next PTT 2130. Tele #12 placed - NSR on monitor. Oriented to room and POC. Call baker in reach and explained,
verbalized understanding of all instructions.
[2024-10-14] MEDS: ROXICODONE 30 MG PO ×2 (19:31→22:33)
[2024-10-14] MEDS: NEURONTIN 300 MG PO (19:31)
[2024-10-14] MEDS: BENADRYL 25 MG PO (20:00)
[2024-10-14 21:57] LABS: APTT 70.1 Sec (23.4-35.0)
[2024-10-14 22:16] LABS: Troponin I 0.215 ng/ml
[2024-10-14] MEDS: BENADRYL 50 MG PO (22:16)
[2024-10-14] MEDS: CYMBALTA DELAYED RELEASE 30 MG PO (22:16)
[2024-10-14] MEDS: HEPARIN 5000 UNITS IV (22:17)
[2024-10-15] VITALS (8 sets, daily range): BP systolic 104–160; BP diastolic 75–96; PULSE 2–84
[2024-10-15] MEDS: HEPARIN 25000 UNITS/250 ML IV ×2 (03:41→19:34)
[2024-10-15] MEDS: ROXICODONE 30 MG PO ×5 (03:49→21:04)
[2024-10-15 05:20] LABS: Troponin I 0.139 ng/ml
[2024-10-15 05:29] LABS: APTT > 200 Sec (23.4-35.0)
[2024-10-15] MEDS: NEURONTIN 300 MG PO ×2 (07:36→21:04)
[2024-10-15] MEDS: BENADRYL 25 MG PO (07:46)
[2024-10-15 11:47] LABS: Troponin I 0.078 ng/ml
--- NOTE | 2024-10-15 12:18 | W.PN.PUL3 ---
Addendum entered and electronically signed by Moises Barr MD 10/15/24 13:07:
Will continue to follow in our office after DC, BIPAP and also now PE. Last time seen by Lynnette PERES en early September.
Original Note:
Today's Communication / Plan
-
Heparin drip for additional 24 hours
Eventual transition to oral anticoagulants
Continue telemetry monitoring
Monitor for bleeding
Continue nocturnal BiPAP
Will follow
Assessment
-
59-year-old male with history of DVT/PE August 2021 treated in at [facility] with 3 months of anticoagulation, sleep apnea on BiPAP therapy, presents with acute onset shortness of breath and presyncopal symptoms. Patient found to be
tachycardic, abnormal EKG. CT chest confirmed bilateral PE, left greater than right. We are asked to help from critical care standpoint
Acute bilateral PE
Minimal RV strain per report
Elevated troponin
Sinus tachycardia
Mild presyncopal symptoms
Hepatomegaly
Daily alcohol use
Conditions present prior to admission
History of PE/DVT August 2021
Completed 3 months of anticoagulation
Hypertension
Obstructive sleep apnea on BiPAP
Compliant with BiPAP 20/16
Most recent HST AHI 105, desaturation peetr 63%, July 2024
Total AHI 33, REM AHI 115, desaturation peter 78%, failed CPAP, February 2021
Chronic bilateral arthritis
History of rhinitis, sinus infections
50 pound weight loss intentional
On Zepbound therapy
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
Plan/recommendations
Stable overnight
No significant oxygen requirement
Not tachycardic
Patient is hypertensive.
-
History of bilateral DVT and PE August 2021 noted, cause unknown
Mildly elevated troponin, abnormal EKG with sinus tachycardia, P pulmonale
CT chest - There is bilateral PE. Some clot on the right side appears to be eccentric per my review. Of note study was not a dedicated CT PE protocol, but instead CT angiogram to rule out aortic dissection. No evidence of dissection.
PESI score 89, class III (up to 7.1% 30-day mortality)
Case has been discussed at length with patient and pathophysiology of thromboembolic disease.
Echocardiogram noted: Report [id number] male with history of DVT/PE August 2021 treated in at [facility] with 3 months of anticoagulation, sleep apnea on BiPAP therapy, presents with acute onset shortness of breath and
presyncopal symptoms. Patient found to be tachycardic, abnormal EKG. CT chest confirmed bilateral PE, left greater than right. We are asked to help from critical care standpoint
Acute bilateral PE
Minimal RV strain per report
Elevated troponin
Sinus tachycardia
Mild presyncopal symptoms
Hepatomegaly
Daily alcohol use
Conditions present prior to admission
History of PE/DVT August 2021
Completed 3 months of anticoagulation
Hypertension
Obstructive sleep apnea on BiPAP
Compliant with BiPAP 20/16
Most recent HST AHI 105, desaturation peter 63%, July 2024
Total AHI 33, REM AHI 115, desaturation peter 78%, failed CPAP, February 2021
Chronic bilateral arthritis
History of rhinitis, sinus infections
50 pound weight loss intentional
On Zepbound therapy
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
Plan/recommendations
59-year-old male with history of DVT/PE August 2021 treated in at [facility] with 3 months of anticoagulation, sleep apnea on BiPAP therapy, presents with acute onset shortness of breath and presyncopal symptoms. Patient found to be
tachycardic, abnormal EKG. CT chest confirmed bilateral PE, left greater than right. We are asked to help from critical care standpoint
Acute bilateral PE
Minimal RV strain per report
Elevated troponin
Sinus tachycardia
Mild presyncopal symptoms
Hepatomegaly
Daily alcohol use
Conditions present prior to admission
History of PE/DVT August 2021
Completed 3 months of anticoagulation
Hypertension
Obstructive sleep apnea on BiPAP
Compliant with BiPAP
Most recent HST AHI 105, desaturation peter 63%, July 2024
Total AHI 33, REM AHI 115, desaturation peter 78%, failed CPAP, February 2021
Chronic bilateral arthritis
History of rhinitis, sinus infections
50 pound weight loss intentional
On Zepbound therapy
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
Plan/recommendations
Stable overnight
No oxygen requirements
Not tachycardic
Patient is hypertensive
-
History of bilateral DVT and PE August 2021 noted, cause unknown
Mildly elevated troponin, abnormal EKG with sinus tachycardia, P pulmonale
CT chest reviewed. There is bilateral PE. Some clot on the right side appears to be eccentric per my review. Of note study was not a dedicated CT PE protocol, but instead CT angiogram to rule out aortic dissection. No evidence of dissection.
PESI score 89, class III (up to 7.1% 30-day mortality)
Has been discussed at length with patient and pathophysiology of thromboembolic dIsease.
Echocardiogram noted: Reviewed - Normal left ventricular systolic function. Left ventricular ejection fraction is 60-65%.
Enlarged right ventricular size. Reduced right ventricular systolic function.
Mild tricuspid regurgitation. Right heart pressures could not be determined.
-
Lower extremity Dopplers negative for DVT.
-
Case discussed with interventional radiology given the stability-patient was not deemed candidate for invasive intervention such as catheter directed thrombolysis or thrombectomy.
-
Continue heparin drip for additional 24 hours. If stable tomorrow we will consider transition to oral anticoagulants.
Given second thromboembolic event, may benefit from hematology evaluation as outpatient
Patient has not had colonoscopy
Recommend age-appropriate cancer screening
Patient did not bring his BiPAP
Will set up BiPAP with 20/16 during hospital stay
Will continue to follow
Subjective Data
-
Date of Service:
Date of Service: October 15, 2024
Chief Complaint: Pulmonary Follow Up (Submassive pulmonary embolism)
Subjective:
Patient denies any significant complaints overnight
Denies lightheadedness or chest pain
No shortness of breath at rest
Review of Systems
General: Fever (n)
Cardiopulmonary: Dyspnea (none at rest)
GI: Abdominal Pain (n) and Nausea
Neuro: Headache (n)
Objective Data
Data Reviewed
Vital Signs / I&O / Oxygen:
Vital Signs
Temp Pulse Resp BP Pulse Ox
98.0 F 71 16 150/84 97
10/15/24 07:27 10/15/24 11:10 10/15/24 11:10 10/15/24 11:10 10/15/24 11:10
Intake and Output
10/14/24 10/15/24 10/16/24
06:59 06:59 06:59
Intake Total 480 / 480
Output Total 500 / 500
Balance -20 / -20
SaO2 97
Physical Exam
General: Comfortable
HEENT: Normocephalic
Cardiovascular: S1-S2
Respiratory: Non-Labored Respirations
GI: Non Distended
Neurology: Awake, AO x 3 and No Motor Deficits
Skin: Warm
Labs/Micro/Reports
Lab Data
10/14/24 12:37
10/14/24 12:38
Laboratory Results
10/14/24 10/14/24 10/15/24
15:35 21:39 04:38
APTT 29.5 70.1 H > 200 H*
--- NOTE | 2024-10-15 12:33 | W.PN.HOSP.TC ---
Today's Communication/Plan
-
eventual conversion to Xarelto--should follow up with heme as outpt
Assessment / Plan
Assessment / Plan
pt is a 59 year old male
Bilateral PE unprovoked--2nd episode--apprec pulm--not lytic candidate--cont IV heparin--ECHO with some right heart strain--pt has had Xarelto before
Troponin elevation likely demand ischemia--Continue to trend Trop--EKG with normal sinus rhythm
Chronic pain-- gabapentin, Oxy continued--celebrex should stop
Obstructive sleep apnea--CPAP continued--Benadryl for sleep
Anxiety--Duloxetine
CODE STATUS--Full code
Anticipated Discharge: 24 - 48 hours
Subjective/Interval History
-
Date of Service: October 15, 2024
pt concerned about med interactions with anticoagulation, hives since May as well
Objective Data
-
Labs:
Laboratory Results
10/15/24 10/15/24
04:38 13:30
APTT > 200 H* Pending
Vital Signs:
max temp for 24 hours
10/15/24
07:27
Temp 98.0 F
Vital Signs
Temp Pulse Resp BP Pulse Ox
98.0 F 71 16 150/84 97
10/15/24 07:27 10/15/24 11:10 10/15/24 11:10 10/15/24 11:10 10/15/24 11:10
I&O
10/14/24 10/15/24 10/16/24
06:59 06:59 06:59
Intake Total 480 / 480
Output Total 500 / 500
Balance -20 / -20
Review of Systems
-
All other systems: Reviewed and negative
Physical Exam
-
General: Well Developed, Well Nourished, No Apparent Distress and Morbidly Obese
HEENT: Normocephalic and Atraumatic; Negative Oxygen
Respiratory: Clear to Auscultation and Decreased Breath Sounds; Negative Wheezes or Rhonchi
Cardiac: Regular Rhythm and S1/S2; Negative Murmur
GI: Soft, Nontender, Nondistended and Normal Bowel Sounds
Musculoskeletal: No Clubbing, No Cyanosis and No Edema
Neuro: Awake and Alert
Psych: Calm
[2024-10-15 13:30] LABS: APTT 69.7 Sec (23.4-35.0)
[2024-10-15] MEDS: HEPARIN 5000 UNITS IV (13:37)
--- NOTE | 2024-10-15 16:54 | CM ---
Alert awake oriented patient who lives with his Isa who lives in a 2 story home with 4 step to enter and 13 steps to bed and bathroom. He is independent in driving and in all activities of daily living.He was offered VN he declined need.He
uses walker and cane as needed.
No VN hx / No SNF history
Pharmacy [facility]
PCP DR Carroll
PLAN Home Declined VN
[2024-10-15] MEDS: CYMBALTA DELAYED RELEASE 30 MG PO (21:04)
[2024-10-15] MEDS: BENADRYL 50 MG PO (21:04)
[2024-10-15 21:06] LABS: APTT 82.9 Sec (23.4-35.0)
[2024-10-16] MEDS: ROXICODONE 30 MG PO ×5 (02:07→20:50)
[2024-10-16] MEDS: BENADRYL 25 MG PO ×2 (02:10→09:36)
[2024-10-16 03:42] VITALS: BP 156/100
[2024-10-16 03:42] LABS: APTT 87.8 Sec (23.4-35.0)
[2024-10-16 05:48] LABS: Hematocrit 38.8 % (39.0-52.0); Mean Corp Hgb Conc. 33.5 g/dL (33.0-37.0); Mean Corpuscular Hgb 30.4 pg (27.0-31.0); Mean Corpuscular Volume 90.7 fL (80.0-94.0); Mean Platelet Volume 10.7 fL (7.4-10.4); Platelet Count 119 10^3/uL (130-400); Red Blood Cell Count 4.28 10^6/uL (4.70-6.10); Red Cell Dist. Width 14.2 % (11.5-14.5); White Blood Cell Count 6.3 10^3/uL (4.8-10.8)
[2024-10-16 06:13] LABS: ALT (SGPT) 21 U/L (0-50); AST (SGOT) 24 U/L (17-59); Albumin 3.7 g/dl (3.5-5.0); Alkaline Phosphatase 80 U/L (38-126); Blood Urea Nitrogen 15 mg/dl (9-20); Calcium 8.4 mg/dl (8.4-10.2); Carbon Dioxide 26 mmol/L (22-30); Chloride 104 mmol/L (98-107); Estimated Creatinine Clearance > 125 ml/min; Glucose 105 mg/dl (70-99); Potassium 3.6 mmol/L (3.5-5.1); Sodium 136 mmol/L (135-145); Total Bilirubin 0.5 mg/dl (0.2-1.3); eGFR > 60.00
[2024-10-16 07:21] VITALS: BP 170/91
[2024-10-16] MEDS: NEURONTIN 300 MG PO ×2 (07:31→20:51)
[2024-10-16] MEDS: HEPARIN 25000 UNITS/250 ML IV (07:52)
[2024-10-16 09:34] VITALS: BP 136/81
--- NOTE | 2024-10-16 10:38 | W.PN.HOSP.TC ---
Today's Communication/Plan
-
transition from heparin drip to Xarelto
OOB
ambulate
Assessment / Plan
Assessment / Plan
pt is a 59 year old male
Bilateral PE unprovoked--2nd episode--apprec pulm--not lytic candidate-- IV heparin to Xarelto 15 mg BID x 21 days followed by 20mg daily thereafter--ECHO with some right heart strain--pt has had Xarelto before
Troponin elevation likely demand ischemia--Continue to trend Trop--EKG with normal sinus rhythm
Chronic pain-- gabapentin, Oxy continued--celebrex should stop
Obstructive sleep apnea--CPAP continued--Benadryl for sleep
Anxiety--Duloxetine
CODE STATUS--Full code
Anticipated Discharge: 24 - 48 hours
Subjective/Interval History
-
Date of Service: October 16, 2024
pt without c/o
Objective Data
-
Labs:
Laboratory Results
10/16/24 10/16/24
03:20 05:27
WBC 6.3
Hgb 13.0
Hct 38.8 L
Plt Count 119 L
APTT 87.8 H
Sodium 136
Potassium 3.6 D
Chloride 104
Carbon Dioxide 26
BUN 15
Creatinine 0.9
Glucose 105 H
Calcium 8.4
Total Bilirubin 0.5
AST 24
ALT 21
Alkaline Phosphatase 80
Vital Signs:
max temp for 24 hours
10/15/24
23:38
Temp 98.2 F
Vital Signs
Temp Pulse Resp BP Pulse Ox
98.0 F 72 16 136/81 98
10/16/24 07:21 10/16/24 09:34 10/16/24 07:21 10/16/24 09:34 10/16/24 07:21
I&O
10/15/24 10/16/24 10/17/24
06:59 06:59 06:59
Intake Total 480 / 480 600 / 600
Output Total 500 / 500 1600 / 1600
Balance -20 / -20 -1000 / -1000
Review of Systems
-
All other systems: Reviewed and negative
Physical Exam
-
General: Well Developed, Well Nourished, No Apparent Distress and Obese
HEENT: Normocephalic and Atraumatic; Negative Oxygen
Respiratory: Clear to Auscultation; Negative Wheezes or Rhonchi
Cardiac: Regular Rhythm and S1/S2; Negative Murmur
GI: Soft, Nontender, Nondistended and Normal Bowel Sounds
Musculoskeletal: No Clubbing, No Cyanosis and No Edema
Neuro: Awake and Alert
Psych: Calm
[2024-10-16 10:53] VITALS: BP 133/76
[2024-10-16] MEDS: XARELTO 15 MG PO ×2 (10:58→20:49)
[2024-10-16 15:26] VITALS: BP 141/56
--- NOTE | 2024-10-16 18:09 | W.PN.PUL3 ---
Today's Communication / Plan
-
Agree with transition to oral anticoagulation
Ambulate, assess saturation
Continue BiPAP
Will require short-term follow-up in the next 6 to 8 weeks
Disposition efforts
Assessment
-
59-year-old male with history of DVT/PE August 2021 treated in at [facility] with 3 months of anticoagulation, sleep apnea on BiPAP therapy, presents with acute onset shortness of breath and presyncopal symptoms. Patient found to be
tachycardic, abnormal EKG. CT chest confirmed bilateral PE, left greater than right. We are asked to help from critical care standpoint
Acute bilateral PE
Minimal RV strain per report
Elevated troponin
Sinus tachycardia
Mild presyncopal symptoms
Hepatomegaly
Daily alcohol use
Conditions present prior to admission
History of PE/DVT August 2021
Completed 3 months of anticoagulation
Hypertension
Obstructive sleep apnea on BiPAP
Compliant with BiPAP
Most recent HST AHI 105, desaturation peter 63%, July 2024
Total AHI 33, REM AHI 115, desaturation peter 78%, failed CPAP, February 2021
Chronic bilateral arthritis
History of rhinitis, sinus infections
50 pound weight loss intentional
On Zepbound therapy
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
Plan/recommendations
Stable overnight
No significant oxygen requirement
Not tachycardic
Patient is hypertensive.
Subjectively improved
-
History of bilateral DVT and PE August 2021 noted, cause unknown
Mildly elevated troponin, abnormal EKG with sinus tachycardia, P pulmonale
CT chest - There is bilateral PE. Some clot on the right side appears to be eccentric per my review. Of note study was not a dedicated CT PE protocol, but instead CT angiogram to rule out aortic dissection. No evidence of dissection.
PESI score 89, class III (up to 7.1% 30-day mortality)
Case has been discussed at length with patient and pathophysiology of thromboembolic disease.
Echocardiogram noted: Report reviewed
Acute bilateral PE
Minimal RV strain per report
Elevated troponin
Sinus tachycardia
Mild presyncopal symptoms
Hepatomegaly
Daily alcohol use
Lower extremity Dopplers negative for DVT.
Okay to transition to oral anticoagulation
Ambulate and check ambulatory saturation
Given second thromboembolic event, may benefit from hematology evaluation as outpatient
Patient has not had colonoscopy
Recommend age-appropriate cancer screening
Patient did not bring his BiPAP
Continue BiPAP with 20/16 during hospital stay
Will continue to follow
Subjective Data
-
Date of Service:
Date of Service: October 16, 2024
Chief Complaint: Pulmonary Follow Up (Submassive pulmonary embolism)
Subjective:
Patient seen earlier today, late entry. Continues to improve. Breathing improved. Denies chest pain. Has mild lightheadedness with activity but is not ambulating much due to knee arthritis
Objective Data
Data Reviewed
Vital Signs / I&O / Oxygen:
Vital Signs
Temp Pulse Resp BP Pulse Ox
98.3 F 73 16 141/56 95
10/16/24 15:26 10/16/24 15:26 10/16/24 15:26 10/16/24 15:26 10/16/24 15:26
Intake and Output
10/15/24 10/16/24 10/17/24
06:59 06:59 06:59
Intake Total 480 / 480 600 / 600 600 / 600
Output Total 500 / 500 1600 / 1600 400 / 400
Balance -20 / -20 -1000 / -1000 200 / 200
SaO2 95
Physical Exam
General: Comfortable
HEENT: Normocephalic
Cardiovascular: S1-S2, Regular Rhythm and Murmur (n)
Respiratory: Wheeze (n), Crackles (n), Rhonchi and Non-Labored Respirations
GI: Soft and Non Distended (Obese)
Neurology: Awake, Alert and No Motor Deficits
Skin: Warm and Cyanosis (n)
Labs/Micro/Reports
Lab Data
10/16/24 05:27
10/16/24 05:27
Laboratory Results
10/15/24 10/16/24
20:48 03:20
APTT 82.9 H 87.8 H
[2024-10-16] MEDS: CYMBALTA DELAYED RELEASE 30 MG PO (20:49)
[2024-10-16] MEDS: BENADRYL 50 MG PO (20:49)
[2024-10-16 23:45] VITALS: BP 151/83
[2024-10-17] MEDS: ROXICODONE 30 MG PO ×3 (01:30→12:52)
[2024-10-17 05:41] LABS: Hematocrit 40.7 % (39.0-52.0); Hemoglobin 13.6 g/dL (13.0-18.0); Mean Corp Hgb Conc. 33.4 g/dL (33.0-37.0); Mean Corpuscular Volume 89.8 fL (80.0-94.0); Mean Platelet Volume 10.9 fL (7.4-10.4); Platelet Count 120 10^3/uL (130-400); Red Blood Cell Count 4.53 10^6/uL (4.70-6.10); White Blood Cell Count 6.5 10^3/uL (4.8-10.8)
[2024-10-17 05:52] LABS: ALT (SGPT) 20 U/L (0-50); AST (SGOT) 24 U/L (17-59); Albumin 3.8 g/dl (3.5-5.0); Alkaline Phosphatase 77 U/L (38-126); Blood Urea Nitrogen 14 mg/dl (9-20); Calcium 8.7 mg/dl (8.4-10.2); Carbon Dioxide 24 mmol/L (22-30); Chloride 102 mmol/L (98-107); Estimated Creatinine Clearance > 125 ml/min; Glucose 89 mg/dl (70-99); Potassium 3.8 mmol/L (3.5-5.1); Sodium 137 mmol/L (135-145); Total Bilirubin 0.5 mg/dl (0.2-1.3); Total Protein 6.1 g/dl (6.3-8.2); eGFR > 60.00
[2024-10-17 07:00] VITALS: BP 143/91
--- NOTE | 2024-10-17 07:47 | W.PN.HOSP.TC ---
Today's Communication/Plan
-
d/c
Assessment / Plan
Assessment / Plan
pt is a 59 year old male
Bilateral PE unprovoked--2nd episode--apprec pulm--not lytic candidate-- IV heparin to Xarelto 15 mg BID x 21 days followed by 20mg daily thereafter--ECHO with some right heart strain--pt has had Xarelto before--will assess for home O2 needs
Troponin elevation likely demand ischemia--Continue to trend Trop--EKG with normal sinus rhythm
Chronic pain-- gabapentin, Oxy continued--celebrex should stop
Obstructive sleep apnea--CPAP continued--Benadryl for sleep
Anxiety--Duloxetine
CODE STATUS--Full code
ok for d/c
Anticipated Discharge: Today
Subjective/Interval History
-
Date of Service: October 17, 2024
pt c/o left arm pain--improved without intervention--thinks he slept on it wrong
Objective Data
-
Labs:
Laboratory Results
10/17/24
05:07
WBC 6.5
Hgb 13.6
Hct 40.7
Plt Count 120 L
Sodium 137
Potassium 3.8
Chloride 102
Carbon Dioxide 24
BUN 14
Creatinine 0.9
Glucose 89
Calcium 8.7
Total Bilirubin 0.5
AST 24
ALT 20
Alkaline Phosphatase 77
Vital Signs:
max temp for 24 hours
10/16/24
15:26
Temp 98.3 F
Vital Signs
Temp Pulse Resp BP Pulse Ox
98 F 68 20 151/83 99
10/16/24 23:45 10/16/24 23:45 10/16/24 23:45 10/16/24 23:45 10/16/24 23:45
I&O
10/16/24 10/17/24 10/18/24
06:59 06:59 06:59
Intake Total 600 / 600 1080 / 1080
Output Total 1600 / 1600 400 / 400
Balance -1000 / -1000 680 / 680
Review of Systems
-
All other systems: Reviewed and negative
Physical Exam
-
General: Well Developed, Well Nourished, No Apparent Distress and Morbidly Obese
HEENT: Normocephalic and Atraumatic
Respiratory: Clear to Auscultation; Negative Wheezes or Rhonchi
Cardiac: Regular Rhythm and S1/S2; Negative Murmur
GI: Soft, Nontender, Nondistended and Normal Bowel Sounds
Musculoskeletal: No Clubbing, No Cyanosis and No Edema
Neuro: Awake and Alert
Psych: Calm
[2024-10-17] MEDS: XARELTO 15 MG PO (08:37)
[2024-10-17] MEDS: NEURONTIN 300 MG PO (08:42)
--- NOTE | 2024-10-17 09:28 | CM ---
MD entered order for discharge.
Pt offered Vn he declined need.
Isa will tameka delarosa [email or web address].
PLAn Home no needs
--- NOTE | 2024-10-17 11:54 | W.PN.PUL3 ---
Today's Communication / Plan
-
Oral anticoagulation, indefinitely
Outpatient age-appropriate cancer screening, overdue for colonoscopy
Resume CPAP at home
Follow-up with pulmonary in 6 to 8 weeks
Exertional imitations reviewed over the next 2 weeks
Disposition efforts
Assessment
-
59-year-old male with history of DVT/PE August 2021 treated in at [facility] with 3 months of anticoagulation, sleep apnea on BiPAP therapy, presents with acute onset shortness of breath and presyncopal symptoms. Patient found to be
tachycardic, abnormal EKG. CT chest confirmed bilateral PE, left greater than right. We are asked to help from critical care standpoint
Acute bilateral PE
Minimal RV strain per report
Elevated troponin
Sinus tachycardia
Mild presyncopal symptoms
Hepatomegaly
Daily alcohol use
Conditions present prior to admission
History of PE/DVT August 2021
Completed 3 months of anticoagulation
Hypertension
Obstructive sleep apnea on BiPAP
Compliant with BiPAP
Most recent HST AHI 105, desaturation peter 63%, July 2024
Total AHI 33, REM AHI 115, desaturation peter 78%, failed CPAP, February 2021
Chronic bilateral arthritis
History of rhinitis, sinus infections
50 pound weight loss intentional
On Zepbound therapy
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
Plan/recommendations
Stable overnight
Ambulated this morning, no evidence of desaturation, no symptoms
No significant oxygen requirement
Not tachycardic
Subjectively improved
Primary complaint is chronic knee pain
-
History of bilateral DVT and PE August 2021 noted, cause unknown
Mildly elevated troponin, abnormal EKG with sinus tachycardia, P pulmonale
CT chest - There is bilateral PE. Some clot on the right side appears to be eccentric per my review. Of note study was not a dedicated CT PE protocol, but instead CT angiogram to rule out aortic dissection. No evidence of dissection.
PESI score 89, class III (up to 7.1% 30-day mortality)
Case has been discussed at length with patient and pathophysiology of thromboembolic disease.
Echocardiogram noted: Report reviewed
Acute bilateral PE
Minimal RV strain per report
Elevated troponin
Sinus tachycardia
Mild presyncopal symptoms
Hepatomegaly
Daily alcohol use
Lower extremity Dopplers negative for DVT.
Moving forward
Okay to transition to oral anticoagulation
Reviewed importance to avoid heavy lifting, frequent bending and overexertion over the next 2 weeks
Reviewed pathophysiology of thromboembolic disease
Given second thromboembolic event, may benefit from hematology evaluation as outpatient
Patient has not had colonoscopy
Recommend age-appropriate cancer screening
Patient did not bring his BiPAP
Continue BiPAP with 20/16 during hospital stay
Disposition efforts
Subjective Data
-
Date of Service:
Date of Service: October 17, 2024
Chief Complaint: Pulmonary Follow Up (Submassive pulmonary embolism)
Subjective:
Patient continues to improve objectively and subjectively. Ambulating without difficulty. Walked 300 feet. Primary complaint is chronic knee pain. Denies lightheadedness, chest pain. He woke up with some arm pain on the left side, not sure
whether he slept on it wrong. Was not worsened with ambulation
Objective Data
Data Reviewed
Vital Signs / I&O / Oxygen:
Vital Signs
Temp Pulse Resp BP Pulse Ox
98.2 F 66 20 143/91 96
10/17/24 07:00 10/17/24 07:00 10/17/24 07:00 10/17/24 07:00 10/17/24 07:00
Intake and Output
10/16/24 10/17/24 10/18/24
06:59 06:59 06:59
Intake Total 600 / 600 1080 / 1080
Output Total 1600 / 1600 400 / 400
Balance -1000 / -1000 680 / 680
SaO2 96
Physical Exam
General: Comfortable
HEENT: Normocephalic
Cardiovascular: S1-S2, Regular Rhythm and Murmur (n)
Respiratory: Wheeze (n), Crackles (n), Rhonchi and Non-Labored Respirations
GI: Soft and Non Distended (Obese)
Neurology: Awake, Alert and No Motor Deficits
Skin: Warm and Cyanosis (n)
Labs/Micro/Reports
Lab Data
10/17/24 05:07
10/17/24 05:07
[2024-10-17 13:00] VITALS: BP 138/86
--- NOTE | 2024-10-17 14:22 | W.DCSUMMARY ---
Discharge Summary
Discharge Data
Date of Admission: 10/14/24
Date of Discharge: 10/17/24
Total time spent discharging patient (in min): 35
-
Pending Results: No
Hospital Course
Primary care physician : Sugey Stoddard
Principal Discharge diagnosis : Bilateral pulmonary embolism unprovoked second episode, nonischemic myocardial troponin elevation due to pulmonary embolism
Chronic Discharge diagnosis : Chronic pain narcotic dependent, obstructive sleep apnea, anxiety
Hospital Course : Patient was a 59-year-old male who had a previous pulmonary embolism of unknown origin and had been on Xarelto for 6 months in the past. He presented after doing some routine house chores and developed pain that radiated from
bilateral legs up through his abdomen and chest and into both arms accompanied with shortness of breath. He felt clammy all of which lasted approximately 15 minutes and resolved after sitting down. He stated that anytime he would get up to start
ambulating again the symptoms would recur. He denied headache, dizziness, syncope. Patient's CAT scan done in the emergency room showed him to have bilateral pulmonary embolism and the patient was admitted.
Problem #1: Bilateral pulmonary embolism unprovoked second episode. This is the patient's second unprovoked episode. He was not hypoxic and was hemodynamically stable and therefore was not a candidate for lytic therapy. He had been on Xarelto
before. He was started on IV heparin and seen in consultation by pulmonary. Echocardiogram was done which did show some right heart strain. Patient was able to be transitioned from the IV heparin drip over to Xarelto 15 mg twice daily for 21 days
followed thereafter by 20 mg daily. He will need to obtain a prescription from his primary care physician for the 20 mg daily. He should follow-up with pulmonary as an outpatient. He may require hematology referral for hypercoagulable workup
although; with a second episode unprovoked, he will likely need lifelong therapy regardless. Patient ambulated 300 feet on room air and his pulse ox was 96%. He did not qualify for oxygen and was not on oxygen during this hospitalization.
Problem #2: Nonischemic myocardial troponin elevation due to pulmonary embolism. Patient troponin started at 0.083 which peaked at 0.215 and decreased to 0.078 on October 15, 2024. Further troponin numbers were not checked. Echocardiogram showed
preserved ejection fraction with enlarged right ventricle and reduced right ventricular systolic function.
Problem #3: All other medical issues. These include Chronic pain narcotic dependent, obstructive sleep apnea, anxiety. These medical issues were stable during his hospitalization. Medications were continued as able. Of note, Celebrex was stopped
due to his initiation on anticoagulation.
Patient is stable for discharge home at this time. If there are any questions regarding this dictation or his hospital stay, please do not hesitate to call. Our office number is [phone].
Important imaging findings :
ECHOCARDIOGRAM CONCLUSIONS
Contrast was used.
Normal left ventricular systolic function. Left ventricular ejection fraction
is 60-65%.
Enlarged right ventricular size. Reduced right ventricular systolic function.
Mild tricuspid regurgitation. Right heart pressures could not be determined.
No prior study available for comparison.
Discharge Plan
-
Patient Disposition: Home (Routine Discharge)
Discharge Diagnosis/Procedures: bilateral unprovoked pulmonary embolism 2nd episode, nonischemic myocardial injury troponin elevation from pulmonary embolism, chronic pain, obstructive sleep apnea, anxiety
Condition: Good
Diet: As tolerated and Regular
Activity: As tolerated
Driving Restrictions: As prior to admission
Bathing Restrictions: None
Referrals:
Lynnette Guillen NP [Specified Professional Personl] - in two to four weeks
(Jr in 6-8 weeks. Need 30 min please
PFT and walk test)
Sugey Stoddard MD [Family Provider] - in less than 1 week
Additional Discharge Medication Instructions: you will need a script for the 20 mg Xarelto from your family doctor once you are finished with the current prescription
Prescriptions:
New
Xarelto 15 mg Tablet
15 mg PO BID 20 Days Qty: 40 0RF
Rx Instructions:
when finished change to 20mg daily
Continued
lysine 1,000 MG tablet
1,000 mg PO BID
oxycodone 30 MG tablet
30 mg PO Q3HPRN MDD 210mg PRN (Reason: severe pain)
Monolaurin capsule
1,200 mg PO BID
diphenhydramine HCl 50 mg Capsule
50 mg PO HS
loperamide 2 mg Tablet
2 mg PO DAILYPRN PRN (Reason: diarrhea )
magnesium oxide 500 mg magnesium Tablet
500 mg PO DAILY
gabapentin 300 mg Capsule
300 mg PO BID
duloxetine 30 mg Capsule,Delayed Release(Dr/Ec)
30 mg PO HS
Zepbound 5 mg/0.5 mL Solution
5 mg SC FR
Held
celecoxib [Celebrex] 200 mg Capsule
200 mg PO BID
Hold Instructions: discuss alternative pain med with your doctor since will be on anticoagulation with Xarelto
Discharge Orders:
Discharge Patient (As Directed); Ordered 10/17/24
Ordered By: Joselyn Lobo
Discharge Date and Time
Discharge Date/Time: 10/17/24 13:40
Print Language: MALTESE
== END 2024-10-17 13:40 | disposition home or self-care (01) | DRG 176 ==
LOC: 3 WEST ACU 16:20
PROVIDERS: Emergency Medicine; Physician Assistant Medical; Registered Nurse; ADMITTING PHYSICIAN Hospitalist; ATTENDING PHYSICIAN Internal Medicine; CONSULT PHYSICIAN Internal Medicine Critical Care Medicine; EMERGENCY PHYSICIAN Emergency Medicine; FAMILY PHYSICIAN Student in an Organized Health Care Education/Training Program
PROC: 5A09357 Assistance with Respiratory Ventilation, Less than 24 Consecutive Hours, Continuous Positive Airway Pressure (ICD-10-PCS; 2024-10-14)
DX: I26.99 Other pulmonary embolism without acute cor pulmonale (principal); I5A Non-ischemic myocardial injury (non-traumatic); F11.20 Opioid dependence, uncomplicated; F41.9 Anxiety disorder, unspecified; G47.33 Obstructive sleep apnea (adult) (pediatric); G89.29 Other chronic pain; Z86.711 Personal history of pulmonary embolism; G90.A Postural orthostatic tachycardia syndrome [POTS]; Z86.718 Personal history of other venous thrombosis and embolism; M17.10 Unilateral primary osteoarthritis, unspecified knee; Z87.01 Personal history of pneumonia (recurrent); W19.XXXA Unspecified fall, initial encounter; Y93.01 Activity, walking, marching and hiking; Z80.1 Family history of malignant neoplasm of trachea, bronchus and lung
CPT/HCPCS: 71275; 74174; 80053; 83735; 83880; 84484; 85025; 85027; 85379; 85730; 93005; 93306; 93970; 94660; 96374; 99291; Q9950; Q9967

== ENCOUNTER 2025-05-19 09:54 | Emergency (ER) | payer OTHER, SELFPAY ==
[2025-05-19 10:01] VITALS: BP 143/95
[2025-05-19 10:57] VITALS: BP 114/67
[2025-05-19 11:00] VITALS: BP 121/63
[2025-05-19 11:26] LABS: Hematocrit 44.0 % (39.0-52.0); Hemoglobin 14.4 g/dL (13.0-18.0); Mean Corp Hgb Conc. 32.7 g/dL (33.0-37.0); Mean Corpuscular Volume 89.4 fL (80.0-94.0); Nucleated Red Blood Cells % 0 % (-); Platelet Count 152 10^3/uL (130-400); Red Cell Dist. Width 13.6 % (11.5-14.5)
[2025-05-19 11:35] LABS: INR 2.72; PT 28.8 Sec (11.4-14.6)
--- NOTE | 2025-05-19 11:35 | ED.GENMED ---
History of Present Illness
General
Chief Complaint: Chest Pain
Source: patient
Exam Limitations: none
Time Seen by Provider: 05/19/25 11:22
History of Present Illness
History of Present Illness:
59-year-old male with history of PE on Xarelto presents complaining of 2 to 3 days worth of worsening left-sided chest pain. The pain is made worse to the touch. It feels very similar to her prior PEs for the patient. He also describes a pretty
pronounced shortness of breath with any type of exertion. He denies any new leg or Morriss leg swelling. No fevers or chills. No vomiting. No other complaints
Past History
Past History
ED Past Medical History: Other (Pulmonary embolism)
ED Past Surgical History: Orthopedic
Social History
Tobacco: Non-smoker
Alcohol: Daily
Drug: None
Personal:
Living: with family
Phy Exam
Physical Exam
Physical Exam:
General: Well-appearing male obese no acute respiratory distress
HEENT: Normocephalic atraumatic
Heart: Regular rate and rhythm
Lungs: Slightly diminished secondary to body habitus but no obvious wheeze or rales
Abdomen is soft nontender
Extremities: No cyanosis
SkiN: Warm no rash
Scores
Heart Score for Chest Pain Patients
STEMI patient?: No
History: Slightly or Non-Suspicious
ECG: Normal
Age: >45 - <65 years
Risk Factors: 1 or 2 Risk Factors
Troponin: </= Normal Limit
Heart Score for Chest Pain Patients: 2
Heart Score Risk: 2.5% MACE over next 6 weeks
Course
Orders/Labs/Results
Orders:
Orders
05/19/25 09:55
Electrocardiogram (*1) Urgent
Reason for Study: Chest Pain
EKG- Treatment ONCE
05/19/25 11:14
Complete Blood Count/With Diff Urgent
Comprehensive Metabolic Panel Urgent
Lipase Urgent
Comment: ADD ON
NT-proBNP Urgent
PTT Urgent
Prothrombin Time Urgent
Troponin I Urgent
05/19/25 11:35
CT Chest PE Study Urgent
Comment:
Reason For Exam: left chest pain
05/19/25 11:36
Add On- LAB Urgent
Tests Added?: lipase
Abnormal Lab Results
05/19/25
11:14
MCHC 32.7 L g/dL
(33.0-37.0)
PT 28.8 H Sec
(11.4-14.6)
APTT 43.9 H Sec
(23.4-35.0)
05/19/25 11:14
05/19/25 11:14
Vital Signs
Initial and Last Documented VS:
Initial Vital Signs
Temp Pulse Resp BP Pulse Ox
98.1 F 72 16 143/95 94
05/19/25 10:01 05/19/25 10:01 05/19/25 10:01 05/19/25 10:01 05/19/25 10:01
Last Documented Vital Signs
Temp Pulse Resp BP Pulse Ox
98.1 F 65 24 121/71 97
05/19/25 10:01 05/19/25 14:30 05/19/25 14:30 05/19/25 14:00 05/19/25 14:30
MDM/Problems Addressed
Differential Diagnosis Includes:
Chest pain. Consider ACS versus PE although unlikely secondary to anticoagulated state versus chest wall discomfort versus referred pain from abdomen.
EKG shows sinus rhythm without new ischemic changes
Check labs including BNP lipase and troponin. Due to similarity of symptoms and with prior PE and profound dyspnea on exertion PE study was ordered
*Pulse Oximetry
SaO2: 94
Oxygen Mode of Delivery: Room air
Patient hypoxic: no
*Critical Care Note
Total Time (30-74mins, 75-104mins- exclusive of procedures): Not Applicable
Update Note
Update Note:
Troponin undetectable and with symptoms ongoing for several days do not suspect ACS. Repeat not necessary. CT of the chest was ordered which was negative for pulmonary embolism. Patient reassured. There is a pulmonary nodule that seems to be
slightly larger. BNP normal. No respiratory distress upon reassessment.
No indication for admission at this time recommend follow-up with family doctor and/or cardiology for further evaluation
ED Attending Note
-
Portions of this chart may have been created with voice recognition software.� Occasional wrong word or��sound alike� substitutions may have occurred due to the inherent limitations of voice recognition software.
Discharge Plan
Departure
Patient Disposition: Home (Routine Discharge)
Date of Disposition: 05/19/25
Time of Disposition: 15:26
Patient with high blood pressure during this ER visit?: No
Discharge Problem:
Breath shortness
Instructions: Chest Pain CBC Follow Up
Prescriptions:
No Action
lysine 1,000 MG tablet
1,000 mg PO BID
oxycodone 30 MG tablet
30 mg PO Q3HPRN MDD 210mg PRN (Reason: severe pain)
Monolaurin capsule
1,200 mg PO BID
celecoxib [Celebrex] 200 mg Capsule
200 mg PO BID
diphenhydramine HCl 50 mg Capsule
50 mg PO HS
loperamide 2 mg Tablet
2 mg PO DAILYPRN PRN (Reason: diarrhea )
magnesium oxide 500 mg magnesium Tablet
500 mg PO DAILY
gabapentin 300 mg Capsule
300 mg PO BID
duloxetine 30 mg Capsule,Delayed Release(Dr/Ec)
30 mg PO HS
Zepbound 5 mg/0.5 mL Solution
5 mg SC FR
Xarelto 15 mg Tablet
15 mg PO BID 20 Days Qty: 40 0RF
Rx Instructions:
when finished change to 20mg daily
Referrals:
Sugey Stoddard MD [Family Provider, Internal Medicine]
Activity Restrictions/Additional Instructions:
Return here for worsening symptoms otherwise follow-up with your doctor and/or web site specialist
Interventions
Interventions:
*Risk Screen - Suicide Last Done: 05/19/25 10:03
*General Assessment Last Done: 05/19/25 11:11
*Neglect/Abuse Screening Last Done: 05/19/25 10:03
*ED- Fall Risk Assessment Last Done: 05/19/25 11:11
*ED COVID-19 Vaccine History Last Done: 05/19/25 11:11
ED- Cardiac Assessment Last Done: 05/19/25 11:15
Discharge Date and Time
Print Language: CANADIAN
[2025-05-19 11:36] LABS: APTT 43.9 Sec (23.4-35.0)
[2025-05-19 11:56] LABS: ALT (SGPT) 19 U/L (0-50); AST (SGOT) 22 U/L (17-59); Albumin 4.0 g/dl (3.5-5.0); Alkaline Phosphatase 81 U/L (38-126); Blood Urea Nitrogen 14 mg/dl (9-20); Calcium 8.9 mg/dl (8.4-10.2); Carbon Dioxide 26 mmol/L (22-30); Chloride 103 mmol/L (98-107); Glucose 95 mg/dl (70-99); Potassium 4.2 mmol/L (3.5-5.1); Sodium 138 mmol/L (135-145); Total Protein 6.6 g/dl (6.3-8.2); eGFR > 60.00
[2025-05-19 12:00] LABS: Troponin I < 0.012 ng/ml
[2025-05-19 12:10] LABS: Lipase 39 U/L (23-300)
[2025-05-19 13:23] VITALS: BP 142/79
[2025-05-19 14:00] VITALS: BP 121/71
[2025-05-19 15:01] VITALS: BP 115/70
== END 2025-05-19 15:59 | disposition home or self-care (01) ==
LOC: EMR 09:54
PROVIDERS: EMERGENCY PHYSICIAN Emergency Medicine; FAMILY PHYSICIAN Student in an Organized Health Care Education/Training Program
DX: R06.02 Shortness of breath (principal); R07.89 Other chest pain; R91.1 Solitary pulmonary nodule; Z86.711 Personal history of pulmonary embolism; Z79.01 Long term (current) use of anticoagulants
CPT/HCPCS: 99284; 71275; 80053; 83690; 83880; 84484; 85025; 85610; 85730; 93005; Q9967